=== PATIENT | male | born 1980 | race African-American/Black ===

== ENCOUNTER 2019-02-02 17:53 | Emergency (ER) | payer OTHER ==
[~2019-02-02] VITALS: Ht 175.3 cm; Wt 90.7 kg
[2019-02-02] MEDS ORDERED: TELMISARTAN80 MG (18:28)
== END 2019-02-02 19:51 | disposition home or self-care (01) ==
LOC: ER 17:53
DX: B34.9 Viral infection, unspecified (principal)